=== PATIENT | male | born 1980 | race Caucasian/White ===

== ENCOUNTER 2016-10-26 22:44 | Emergency (ER) | payer MEDICAID ==
[~2016-10-26] VITALS: Ht 175.3 cm; Wt 65.8 kg
--- NOTE | 2016-10-26 22:56 | NUR ---
PT IS AT BEDSIDE, ACCOMPANIED BY MOTHER. PT IS AMBULATORY WITH STEADY GAIT. NAD NOTED. VSS. C/O LOWER BACK PAIN S/P LIFTING A HEAVY OBJECT. DENIES ANY PAST MEDICAL HX. WCTM PT AT THIS TIME. WAITING FOR FURTHER PLAN OF CARE
[2016-10-26] MEDS ORDERED: DIAZEPAM 2 MG TABLET PO ONE (23:15)
[2016-10-26] MEDS ORDERED: MORPHINE SULFATE 4 MG/1 ML DISP.SYRIN IM ONE (23:15)
[2016-10-26] MEDS ORDERED: MORPHINE SULFATE 4 MG/1 ML DISP.SYRIN ONE (23:18)
[2016-10-26] MEDS ORDERED: DIAZEPAM 2 MG TABLET ONE (23:18)
--- NOTE | 2016-10-26 23:30 | NUR ---
Patient discharged to home in stable conditon. Written and verbal after care instructions given, along with prescriptions. Patient verbalizes understanding of instructions. Educated pt and family regarding importance of not driving, because it can cause serious injuries including . Pt and family verbalized understanding of instructions. No further questions or concerns noted prior on leaving the ED.
== END 2016-10-26 23:32 | disposition home or self-care (01) ==
LOC: ER 22:51
DX: M54.5 Low back pain (principal); F17.200 Nicotine dependence, unspecified, uncomplicated; Z88.8 Allergy status to other drugs, medicaments and biological substances
CPT/HCPCS: 96372; 99283; A4663; J2270